=== PATIENT | male | born 1980 | race Two or more races ===

== ENCOUNTER 2018-11-04 00:39 | Emergency (ER) | payer OTHER ==
[~2018-11-04] VITALS: Ht 167.6 cm; Wt 79.5 kg
[2018-11-04] MEDS ORDERED: FLUORESCEIN SODIUM 1 MG STRIP OS ONE (06:30)
[2018-11-04 07:01] VITALS: BP 128/86
== END 2018-11-04 07:15 | disposition home or self-care (01) ==
LOC: EMS 00:43
DX: H10.9 Unspecified conjunctivitis (principal)